=== PATIENT | female | born 1965 | race Caucasian/White ===

== ENCOUNTER 2025-07-01 08:09 | Day surgery (SDC) | payer BC ==
[2025-07-01] VITALS (17 sets, daily range): BP systolic 100–154; BP diastolic 62–114
[~2025-07-01] VITALS: Ht 167.6 cm; Wt 91.8 kg
[~2025-07-01 08:09] MED LIST: CETI10 PO; DOCU100 PO; HYDACE5 PO; LORA1 PO; NAPR550 PO; OMEP20ER PO; OXYACE7.5T PO; SERT50 PO
--- NOTE | 2025-07-01 08:45 | NUR ---
History, Chart, Medications and Allergies reviewed before start of procedure.Pre-Op teaching done. Pt verbalizes understanding. Patient States Post-Procedure ride home has been arranged. Patient confirms NPO status and agrees with scheduled surgery.
--- NOTE | 2025-07-01 09:23 | NUR ---
07/01/25 0923 Mari Cunha CONFIRMED AND REVIEWED H&P, MEDCICATIONS, ALLERGIES, MEDICAL HISTORY, RESPIRATORY HISTORY, VITAL SIGNS, 3-LEAD EKG, CONSENTS, AND PHYSICIAN ORDERS. PATIENT CONFIRMS NPO STATUS AND AGREES WITH SCHEDULED PROCEDURE. MONITOR INTACT WITH CONTINUOUS PULSE OXIMETRY, CAPNOGRAPHY, 3-LEAD EKG, INTERMITTENT BP. SUPPLEMENTAL O2 TO BE TITRATED THROUGHOUT PROCEDURE TO MAINTAIN O2 SATURATION ABOVE 90%. PATIENT DETERMINED TO BE ASA APPROPRIATE FOR PROPOFOL SEDATION PRIOR TO START OF PROCEDURE BY DR. GAN. CESAR CLANCY SCOPE: [id number]
--- NOTE | 2025-07-01 09:55 | NUR ---
TO STEP POST PROCEDURE. A/O X 3, DENIES PAIN, NAUSEA, SOB. ARIANA PO WELL. DC'D IV INTACT. VERBALIZED UNDERSTANDING OF DC INSTRUCTIONS. DC'D VIA WC TO PRIVATE CAR WITH RUBBER TUBING BACKER.
== END 2025-07-01 10:04 | disposition home or self-care (01) ==
LOC: ORSCMMR 08:09 → ORD 09:45 → ORSCMMR 09:45
PROVIDERS: Surgery
PROC: 0DJD8ZZ Inspection of Lower Intestinal Tract, Via Natural or Artificial Opening Endoscopic (ICD-10-PCS; principal; 2025-07-01 09:45)
DX: Z12.11 Encounter for screening for malignant neoplasm of colon (principal); K57.30 Diverticulosis of large intestine without perforation or abscess without bleeding; Z86.0101 Personal history of adenomatous and serrated colon polyps; Z85.43 Personal history of malignant neoplasm of ovary; I10 Essential (primary) hypertension; Z79.899 Other long term (current) drug therapy
CPT/HCPCS: J2704; J7120

== ENCOUNTER → 2025-07-03 | Outpatient (CLI) | payer BC ==
[2025-07-03 09:42] LABS: Protein, Urine Quantitative 26.5 mg/dL (0.0-11.9)
== END | disposition home or self-care (01) ==
LOC: LAB SHORT 04:09 → LAB 04:09 → LAB FUT 06-24 07:45
PROVIDERS: Obstetrics & Gynecology Gynecologic Oncology
DX: C56.9 Malignant neoplasm of unspecified ovary (principal)
CPT/HCPCS: 81050; 84156